=== PATIENT | female | born 1975 | race Caucasian/White ===

== ENCOUNTER 2016-12-31 17:09 | Emergency (ER) | payer OTHER ==
[~2016-12-31] VITALS: Ht 162.6 cm; Wt 68.5 kg
[2016-12-31 17:09] VITALS: BP 143/82
[~2016-12-31 17:09] MED LIST: HYDR-971 PO; IBUP200T43 PO
--- NOTE | 2016-12-31 17:45 | PHYS DOC ---
General Chief Complaint: R knee pain Stated Complaint: KNOT ON BACK OF RT KNEE Time Seen by MD: 17:26 Source: patient Exam Limitations: no limitations Problems: (IVIS CALVIN DO) Time Seen by MD: 18:45 Problems: (COLE DRAPER MD) History of Present Illness Initial Comments Pt is 41/F to ED c/o R knee pain/swelling. Pt states that recently she noticed swelling behind her right knee. States it is uncomfortable, 2/10 denies trauma/exertion. Pt is a smoker, has a sedentary/ seated job, no FH coagulopathy. No cp/sob/HUTTON/vision change/focal neurodef/ palpitations. No prearrival treatment, no numbness/tingling/weakness/radiating sx. Pt saw her PCP Dr Claudio at [facility] today, he sent pt to ED for US evaluation and r/o DVT. Onset: other Severity: mild Pain/Injury Location: right knee Method of Injury: unknown Modifying Factors: worse with jarring, worse with movement, improves with rest (IVIS CALVIN DO) Allergies: Coded Allergies: No Known Drug Allergies (Unverified , 03/04/16) Past Medical History Medical History: other (COPD) Surgical History: noncontributory (IVIS CALVIN DO) Social History Smoker: cigarettes Alcohol: none Drugs: none (IVIS CALVIN DO) Review of Systems Constitutional: denies diaphoresis, denies fever, denies malaise EENTM: denies eye pain, denies blurred vision Respiratory: denies cough, denies shortness of breath, denies wheezing Cardiovascular: denies chest pain, denies palpitations, denies syncope Gastrointestinal: denies diarrhea, denies nausea, denies vomiting Genitourinary: denies frequency, denies hematuria Musculoskeletal: see HPI Skin: denies change in color, denies lumps, denies rash Psychiatric/Neurological: denies headache, denies numbness, denies paresthesia , denies tingling, denies weakness (IVIS CALVIN DO) Physical Exam General Appearance: WD/WN, no apparent distress HEENT: normal ENT inspection Cardiovascular/Respiratory: normal peripheral pulses, no respiratory distress Knees: left knee non-tender, left knee normal inspection, bilateral knee normal range of motion, bilateral knee no evidence of injury, right knee other ( popliteal swelling with mild tenderness no erythema/warmth. Consistent with hairston's cyst) Neurologic/Tendon: normal sensation, normal motor functions, normal tendon functions, responds to pain, no evidence tendon injury Psychiatric: alert, oriented x 3 Skin: normal color, warm/dry (IVIS CALVIN DO) Orders, Labs, Meds US/labs pending. Pt signed out to Dr Draper at 1800 shift change. See his documentation for results/disposition. (IVIS CALVIN DO) Orders, Labs, Meds Patient checked out to me pending ultrasound. Patient was barely sent here by her primary care provider imposed to rule out DVT. Patient indicates that earlier this week she had since 1 over the back part of her right knee, about the size of a golf ball, this is much better today. On exam, she has only some mild tenderness over the posterior aspect of the knee and some mild swelling. The area is not red, hot, nor tender. There is no evidence of any kind of abscess or infection. There is no lower extremity edema, and no redness, cords, asymmetry, or signs of DVT noted. No distal foot or toe motor sensory or vascular deficits noted in the right lower extremity. Left ear clinically unremarkable. Lower extremity DVT study shows no signs of DVT per radiology. 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 She states she 's heard of these before. We discussed cyst formation and that sometimes these can flare with irritation or overuse. We discussed that at this time, really there is nothing more to do. I advised on home care, that if this does recur, she can use ice and compressive wraps for the area such as an Franky wrap. We discussed that he really don't do anything with this, but if they become recurrent or didn't waive what she wants to do with recurrent discomfort or pain , she can see an orthopedic surgeon at that time for further evaluation. The patient voiced understanding need to follow up with primary care or return to the ER sooner as needed if worsening anyway. She looks well, no acute discomfort or stress, okay for discharge home at this time. (COLE DRAPER MD) IVIS CALVIN DO Dec 31, 2016 17:45 COLE DRAPER MD Dec 31, 2016 19:34
[2016-12-31 18:03] LABS: BASO % 1 % (0-3); EOS # 0.1 x10^3/uL (0.0-0.7); EOS % 1 % (0-3); HEMOGLOBIN 14.2 g/dL (12.0-15.5); LYMPH # 2.1 x10^3/uL (1.0-4.8); LYMPH % 26 % (24-48); MEAN CORPUSCULAR HEMOGLOBIN 31 pg (25-35); MEAN CORPUSCULAR HGB CONC 34 g/dL (31-37); MEAN CORPUSCULAR VOLUME 92 fL (79-100); MONO # 0.4 x10^3/uL (0.0-1.1); MONO % 5 % (0-9); NEUT # 5.4 x10^3uL (1.8-7.7); NEUT % 68 % (31-73); PLATELET COUNT 280 x10^3/uL (140-400); RED BLOOD COUNT 4.59 x10^6/uL (3.50-5.40); RED CELL DISTRIBUTION WIDTH 12.9 % (11.5-14.5)
[2016-12-31 18:05] LABS: CALCIUM 8.9 mg/dL (8.5-10.1); CREATININE 0.7 mg/dL (0.6-1.0); GFR 92.7; POTASSIUM 3.7 mmol/L (3.5-5.1)
--- NOTE | 2016-12-31 19:03 | RAD ---
PROCEDURE Right lower extremity venous Doppler. HISTORY Lump and fullness in the right lateral popliteal fossa for 4 days. Has decreased in size. COMPARISON None. FINDINGS The veins of the right lower extremity were interrogated under grayscale, color Doppler, and spectral Doppler modes. Veins are compressible and demonstrate normal Doppler nodes. There is no evidence of deep venous thrombosis. Grayscale imaging in area of clinical interest demonstrates no abnormality. IMPRESSION No evidence of right lower extremity deep venous thrombosis. Electronically signed by: Giancarlo Kong MD (Dec 31, 2016 19:02:07)
== END 2016-12-31 19:45 | disposition home or self-care (01) ==
LOC: ER 17:09
DX: M25.561 Pain in right knee (principal); M79.89 Other specified soft tissue disorders; J44.9 Chronic obstructive pulmonary disease, unspecified; F17.210 Nicotine dependence, cigarettes, uncomplicated
CPT/HCPCS: 36415; 80048; 85027; 85610; 85730; 93971; 99285

== ENCOUNTER 2017-07-19 18:47 | Emergency (ER) | payer OTHER ==
[~2017-07-19] VITALS: Ht 162.6 cm; Wt 59.0 kg
[2017-07-19 18:56] VITALS: BP 120/68
[2017-07-19 19:44] LABS: U PREG PATIENT NEGATIVE (NEG)
[2017-07-19] MEDS ORDERED: HYDROcodone/APAP 5/325MG 1 TAB TABLET PO ONE (20:15)
[2017-07-19] MEDS ORDERED: ACETAMINOPHEN 500 MG TABLET PO ONE (21:02)
[2017-07-19 21:40] LABS: INFLUENZA A PATIENT NEGATIVE (NEGATIVE); INFLUENZA B PATIENT NEGATIVE (NEGATIVE)
--- NOTE | 2017-07-20 03:20 | ED.ADGEN ---
Past History Past Medical History: No Pertinent History Past Surgical History: Appendectomy Alcohol Use: Occasionally Drug Use: None Adult General Chief Complaint Chief Complaint Fever, cough and malaise HPI HPI Patient is a [41-year-old female presents with fever, cough and malaise. Patient reports symptoms began 2 weeks ago and have not fully improved. Patient states symptoms are worse this weekend. She reports fever today, persistent cough generalized weakness malaise and arthralgias. No nausea vomiting. No shortness of breath or wheezing sitting. Reports some dysuria. Currently on menstrual period. No other acute symptoms or complaints. Patient has not received these no flu vaccination this year. Patient is a current smoker. Review of Systems Review of Systems Review symptoms as per history of present illness. Current Medications Current Medications Current Medications Medications (Trade) Dose Ordered Sig/Quinton Start Time Stop Time Status Last Admin Dose Admin Acetaminophen (Tylenol) 500 mg STK-MED ONCE 07/19/17 21:02 07/19/17 21:03 DC Acetaminophen/ Hydrocodone Bitart (Lortab 5/325) 1 tab 1X ONCE 07/19/17 20:15 07/19/17 20:16 DC Allergies Allergies Allergies Coded Allergies Type Severity Reaction Last Updated Verified No Known Drug Allergies 03/04/16 No Physical Exam Physical Exam Constitutional: Well developed, well nourished, no acute distress, non-toxic appearance. [] HENT: Normocephalic, atraumatic, bilateral external ears normal, oropharynx moist, no oral exudates, nose normal. [] Eyes: PERRLA, EOMI, conjunctiva normal, no discharge. [] Neck: Normal range of motion, no tenderness, supple, no stridor. [] Cardiovascular:Heart rate regular rhythm, no murmur [] Lungs & Thorax: Bilateral breath sounds clear to auscultation [] Abdomen: Bowel sounds normal, soft, no tenderness, no masses, no pulsatile masses. [] Skin: Warm, dry, no erythema, no rash. [] Back: No tenderness, no CVA tenderness. [] Extremities: No tenderness, no cyanosis, no clubbing, ROM intact, no edema. [] Neurologic: Alert and oriented X 3, normal motor function, normal sensory function, no focal deficits noted. [] Psychologic: Affect normal, judgement normal, mood normal. [] Current Patient Data Vital Signs Vital Signs Date Time Temp Pulse Resp B/P (MAP) Pulse Ox O2 Delivery O2 Flow Rate FiO2 07/19/17 21:45 100.0 102 07/19/17 18:56 16 98 Room Air Lab Results Laboratory Tests Test 07/19/17 18:56 07/19/17 21:01 Urine Test Negative (NEG) Influenza Type A (Rapid) Negative (NEGATIVE) Influenza Type B (Rapid) Negative (NEGATIVE) EKG EKG [] Radiology/Procedures Radiology/Procedures [Chest x-ray: No acute cardiopulmonary disease] Course & Med Decision Making Course & Med Decision Making Pertinent Labs and Imaging studies reviewed. (See chart for details) [Patient developed temperature of 102.2 and ED. Lungs are clear, no wheezing. Chest x-ray does not show infiltrate. Urine is unremarkable with exception of currently being on menstrual period. Suspect early or atypical pneumonia. Recommend home, rest, oral antibiotics, inhaler and cough medication periods PCP follow-up. Return precautions reviewed.] Final Impression Final Impression [#1 early pneumonia] Problems: Dragon Disclaimer Dragon Disclaimer This electronic medical record was generated, in whole or in part, using a voice recognition dictation system. JAMIA TAYLOR DO Jul 20, 2017 03:20
--- NOTE | 2017-07-20 08:01 | RAD ---
Indication: Chest pain, cough, congestion, fever. Technique: Two-view chest radiograph was obtained. No comparison is available. Findings: The lungs are clear. The cardiopulmonary silhouette is within normal limits. There is no pleural effusion. The bony structures are intact. Impression: No acute thoracic findings.
== END 2017-07-19 21:51 | disposition home or self-care (01) ==
LOC: ER 18:47
DX: J18.9 Pneumonia, unspecified organism (principal)
CPT/HCPCS: 71020; 81025; 87804; 99285

== ENCOUNTER 2020-11-27 05:07 | Emergency (ER) | payer BC, OTHER ==
[~2020-11-27] VITALS: Ht 162.6 cm; Wt 58.2 kg
[2020-11-27 05:07] VITALS: BP 115/73
[~2020-11-27 05:07] MED LIST changes: +HYDR-3165 PO; -HYDR-971 PO; -IBUP200T43 PO; +IBUP200T44 PO
--- NOTE | 2020-11-27 05:35 | PHYS DOC ---
Past History Past Medical History: No Pertinent History Past Surgical History: Appendectomy Smoking: Cigarettes Alcohol Use: Occasionally Drug Use: None General Adult EDM: Chief Complaint: KNEE INJURY HPI: HPI: 45-year-old female presents with report of right knee pain. Patient reports she was struck by a softball that was pitched by her daughter yesterday. Reports it was going "60 miles an hour ". Patient reports has been icing without any improvement. Reports pain with ambulation. Reports took some Tylenol without improvement. Patient denies . Reports last menstrual period 11/01/2020. Review of Systems: Review of Systems: Constitutional: Denies fever or chills Eyes: Denies redness or eye pain HENT: Denies nasal congestion or sore throat Respiratory: Denies cough or shortness of breath Cardiovascular: Denies chest pain or palpitations GI: Denies abdominal pain, nausea, or vomiting : Denies dysuria or hematuria Musculoskeletal: Denies back pain; reports right knee pain Integument: Denies rash; reports contusion of right knee Neurologic: Denies headache, focal weakness or sensory changes Complete systems were reviewed and found to be within normal limits, except as documented in this note. Allergies: Allergies: Allergies Coded Allergies Type Severity Reaction Last Updated Verified No Known Drug Allergies 03/04/16 No Physical Exam: PE: Constitutional: Well developed, well nourished, no acute distress, non-toxic appearance HENT: Normocephalic, atraumatic Eyes: Conjunctiva normal, no discharge Neck: Normal range of motion, no tenderness, supple Lungs & Thorax: No respiratory distress, equal chest rise and fall Skin: Warm, dry, no erythema, contusion to anterior right knee Extremities: Right anterior knee tenderness, patella intact, anterior drawer negative, ROM intact, mild edema to anterior knee consistent for contusion Neurologic: Alert and oriented X 3, normal motor function, normal sensory function, no focal deficits noted Psychologic: Affect normal, judgment normal EKG: EKG: [] Radiology/Procedures: Radiology/Procedures: PROCEDURE: KNEE RIGHT 3V Study: XR KNEE 3 VIEWS_RT Indication: Blunt trauma. Pain. Comparison: None Findings: No acute fracture. Alignment is anatomic. No large knee joint effusion. Maintained femorotibial compartment joint space height. Impression: No acute osseous abnormality. Electronically signed by: BAUDILIO CRAWFORD MD (11/27/2020 5:59 AM) [facility] Course & Med Decision Making: Course & Med Decision Making Pertinent Imaging studies reviewed. (See chart for details) Patient presents with HPI and physical exam consistent for knee contusion se condary to being hit with a softball. No deformity noted. Limb neurovascularly intact. Ice applied. X-ray obtained without acute fracture or dislocation. Franky wrap applied. Crutches provided. Patient educated on RICE. IM ketorolac provided. Patient stable for discharge with outpatient follow-up with PCP/orthopedics. Orthopedic referral provided. Discussed findings and plan with patient and family, who acknowledge understanding and agreement. Dragon Disclaimer: Dragon Disclaimer: This electronic medical record was generated, in whole or in part, using a voice recognition dictation system. Splinting Splinting : Location: Right knee Pre-Made Type: Franky bandage Pre-Proc Neuro Vasc Exam: normal Post-Proc Neuro Vasc Exam: normal, unchanged from pre-exam Departure Departure: Impression: Primary Impression: Contusion of knee, right Qualified Codes: S80.01XA - Contusion of right knee, initial encounter Disposition: 01 DC HOME SELF CARE/HOMELESS Condition: STABLE Referrals: PCP,JACOBO (PCP) SARIKA ARZOLA MD Patient Instructions: Contusion, [id number], Crutch Use, Miwp-sd-Lyol, Knee Wraps (Elastic Bandage) and RICE Additional Instructions: Use over the counter Tylenol and/or Ibuprofen for pain or discomfort. ICE area of discomfort 20 min on then leave off next 20 mins. Repeat several times daily for next few days. KASHIF WISE DO Nov 27, 2020 05:35
[2020-11-27] MEDS ORDERED: KETOROLAC 30 MG/ML VIAL. IM ONE (05:45)
--- NOTE | 2020-11-27 06:02 | RAD ---
Study: XR KNEE 3 VIEWS_RT Indication: Blunt trauma. Pain. Comparison: None Findings: No acute fracture. Alignment is anatomic. No large knee joint effusion. Maintained femorotibial suman rtment joint space height. Impression: No acute osseous abnormality. Electronically signed by: BAUDILIO CRAWFORD MD (11/27/2020 5:59 AM) [facility]
== END 2020-11-27 06:15 | disposition home or self-care (01) ==
LOC: ER 05:07
DX: S80.01XA Contusion of right knee, initial encounter (principal); F17.210 Nicotine dependence, cigarettes, uncomplicated; W21.07XA Struck by softball, initial encounter; Y93.64 Activity, baseball; Y92.89 Other specified places as the place of occurrence of the external cause; Y99.8 Other external cause status
CPT/HCPCS: 73562; 96372; 99283; J1885

== ENCOUNTER → 2020-12-13 | Outpatient (CLI) | payer BC ==
[2020-11-27 05:07] VITALS: BP 115/73
--- NOTE | 2020-12-13 08:39 | RAD ---
EXAM: Chest, 2 views. HISTORY: COPD. Chronic cough. COMPARISON: None. FINDINGS: 2 views of the chest are obtained. There is no infiltrate, pleural effusion or pneumothorax . The heart is normal in size. There is hyperinflation due to respiratory effort or emphysema. There are calcified granulomas. IMPRESSION: No acute pulmonary finding. Electronically signed by: Juany Live MD (12/13/2020 8:36 AM) [id number]
--- NOTE | 2020-12-13 08:40 | RAD ---
EXAM: Pelvic sonogram. HISTORY: Painful menses. TECHNIQUE: Sonographic imaging of the pelvis was performed. COMPARISON: None. FINDINGS: The uterus measures 8.4 x 5.2 x 3.4 cm. The endometrial stripe measures 5 mm in thickness. There are simple left ovarian follicle/follicular cysts measuring 1.9 cm and 2.1 cm. There is normal blood flow within both ovaries. There is trace pelvic free fluid. IMPRESSION: 1. Paired physiologic dominant left ovarian follicle/follicular cysts measuring 1.9 cm and 2.1 cm. 2. Trace pelvic free fluid, within physiologic limits for a premenopausal female. Electronically signed by: Juany Live MD (12/13/2020 8:38 AM) [id number]
--- NOTE | 2020-12-13 09:44 | RAD ---
EXAM: Bilateral screening mammogram. HISTORY: 41-year-old female presents for screening mammography. TECHNIQUE: Full-field digital craniocaudal and mediolateral oblique views of both breasts are obtaine d for evaluation. Computer aided detection was applied. COMPARISON: None. This is a baseline mammogram. BREAST PARENCHYMAL DENSITY: Level B - Scattered fibroglandular densities. FINDINGS: There is a nodular asymmetry within the posterior aspect of the left breast superior to the nipple in the mediolateral oblique projection. There is no convincing correlate in the craniocaudal projection. There is also a partially circumscribed nodular asymmetry within the 7:00 position of the left breast at mid depth. There is a punctate benign-appearing calcification within the posterior rhodes perior left breast. There is no architectural distortion. IMPRESSION: BI-RADS Category 0: Incomplete. Additional imaging needed. RECOMMENDATION: Further evaluation with a full field true lateral view and spot compression views of the left breast to assess areas of nodular asymmetry is recommended. Sonographic imaging of the left breast can also be performed if deemed indicated based on additional mammographic findings. If your mammogram demonstrates that you have dense breast tissue, which could hide abnormalities, and if you have other risk factors for breast cancer that have been identified, you might benefit from s upplemental screening tests that may be suggested by your ordering physician. Dense breast tissue, i n and of itself, is a relatively common condition. This information is not provided to cause undue c oncern, but rather to raise your awareness and to promote discussion with your physician regarding th e presence of other risk factors, in addition to dense breast tissue. A report of your mammography re sults will be sent to you and your physician. You should contact your physician if you have any ques tions or concerns regarding this report. Mammography is a sensitive method for finding small breast cancers, but it does not detect them all a nd is not a substitute for careful clinical examination. A negative mammogram does not negate a clin ically suspicious finding and should not result in delay in biopsying a clinically suspicious abnorma lity. PQRS compliance statement - Patient information was entered into a reminder system with a target due date for the next mammogram. "Our facility is accredited by the [employer] Mammography Program." Electronically signed by: Juany Live MD (12/13/2020 9:42 AM) [id number]
== END ==
LOC: US 07:43
PROVIDERS: ATTEND Obstetrics & Gynecology
DX: Z12.31 Encounter for screening mammogram for malignant neoplasm of breast (principal); N64.89 Other specified disorders of breast; N94.6 Dysmenorrhea, unspecified; J44.9 Chronic obstructive pulmonary disease, unspecified
CPT/HCPCS: 71046; 76856; 77067

== ENCOUNTER → 2021-01-01 | Outpatient (CLI) | payer BC ==
--- NOTE | 2021-01-01 18:07 | RAD ---
Examination: Left digital diagnostic mammogram. INDICATION: 45-year-old woman recalled from screening for nodularity in the left breast. COMPARISON: Bilateral mammogram of 12/13/2020 TECHNIQUE: Full field left ML view was obtained in addition to left CC and MLO spot compression views . The full field mammogram was reviewed with computer-aided detection. FINDINGS: Scattered fibroglandular densities. The questioned nodularity in the left breast changed configuration in a pattern compatible with benig n overlap of fibroglandular tissue. No persistent mammographic abnormality appreciated. IMPRESSION: Benign findings on left diagnostic mammogram. No evidence of malignancy. Recommend return to routine screening next due in one year. BI-RADS Category 2 Benign findings Patient entered into a reminder system with target due date for next mammogram. Electronically signed by: Jessica Pedersen MD (01/01/2021 6:05 PM) [id number]
== END ==
LOC: MAMMO 13:30
PROVIDERS: ATTEND Obstetrics & Gynecology
DX: R92.8 Other abnormal and inconclusive findings on diagnostic imaging of breast (principal)
CPT/HCPCS: 77065